=== PATIENT | male | born 1980 | race Caucasian/White ===

== ENCOUNTER 2017-07-04 12:24 | Emergency (ER) | payer BC ==
--- NOTE | 2017-07-04 14:00 | RADIOLOGY REPORT (SQ) ---
EXAM DESCRIPTION: FOOT RIGHT COMPLETE COMPLETED DATE/TIME: 07/04/2017 1:35 pm REASON FOR STUDY: swollen, unable to move toes, dropped trailer onit COMPARISON: None. NUMBER OF VIEWS: Three views. TECHNIQUE: AP, lateral and oblique radiographic images acquired of the right foot. LIMITATIONS: None. FINDINGS: MINERALIZATION: Normal. BONES: Fractures of the proximal phalanx of the 1st, 2nd, 3rd, and 4th toes. JOINTS: No effusions. SOFT TISSUES: No soft tissue swelling. No foreign body. OTHER: No other significant finding. IMPRESSION: FRACTURES OF THE PROXIMAL PHALANX OF THE 1ST TO 4TH TOES. TECHNICAL DOCUMENTATION: JOB ID: [id number] [employer]- All Rights Reserved Reading location - IP/workstation name: [email or web address]
[2017-07-04] MEDS ORDERED: OXYCODONE-ACETAMINOPHEN 5-325 MG TABLET PO ONE (14:24)
--- NOTE | 2017-07-04 14:29 | ER Document Report ---
ED General - General Chief Complaint: Foot Injury Stated Complaint: RIGHT FOOT PAIN, SWELLING Time Seen by Provider: 07/04/17 14:08 Mode of Arrival: Ambulatory Information source: Patient - HPI Notes: Pt is a 37 y.o. otherwise healthy reports trailer fell on R distal foot at 1030 , reports pain and swelling since. No bleeding, numbness, paresthesia. No fever. No other injury. - Related Data Allergies/Adverse Reactions: No Known Allergies Allergy (Unverified 07/04/17 12:33) Past Medical History - General Information source: Patient - Social History Smoking Status: Never Smoker Chew tobacco use (# tins/day): No Frequency of alcohol use: Occasional Drug Abuse: None Lives with: Family Family History: None, Reviewed & Not Pertinent Patient has suicidal ideation: No Patient has homicidal ideation: No Renal/ Medical History: Denies: Hx Peritoneal Dialysis Review of Systems - Review of Systems Notes: REVIEW OF SYSTEMS: CONSTITUTIONAL : Denies fever, chills, or sweats. Denies recent illness. EENT: Denies eye, ear, throat, or mouth pain or symptoms. Denies nasal or sinus congestion or discharge. Denies throat, tongue, or mouth swelling or difficulty swallowing. CARDIOVASCULAR: Denies chest pain. Denies palpitations or racing or irregular heart beat. Denies ankle edema. RESPIRATORY: Denies cough, cold, or chest congestion. Denies shortness of breath, difficulty breathing, or wheezing. GASTROINTESTINAL: Denies abdominal pain or distention. Denies nausea, vomiting , or diarrhea. Denies blood in vomitus, stools, or per rectum. Denies black, tarry stools. Denies constipation. GENITOURINARY: Denies difficulty urinating, painful urination, burning, frequency, blood in urine, or discharge. MUSCULOSKELETAL: Denies back or neck pain or stiffness. SKIN: Denies rash, lesions or sores. HEMATOLOGIC : Denies easy bruising or bleeding. LYMPHATIC: Denies swollen, enlarged glands. NEUROLOGICAL: Denies confusion or altered mental status. Denies passing out or loss of consciousness. Denies dizziness or lightheadedness. Denies headache. Denies weakness or paralysis or loss of use of either side. Denies problems with gait or speech. Denies sensory loss, numbness, or tingling. Denies seizures. PSYCHIATRIC: Denies anxiety or stress. Denies depression, suicidal ideation, or homicidal ideation. ALL OTHER SYSTEMS REVIEWED AND NEGATIVE. Dictation was performed using [employer] voice recognition software Physical Exam - Vital signs Vitals: Temp Pulse Resp BP Pulse Ox 97.8 F 80 16 143/93 H 97 07/04/17 12:40 07/04/17 12:40 07/04/17 12:40 07/04/17 12:40 07/04/17 12:40 - Notes Notes: PHYSICAL EXAMINATION: GENERAL: Well-appearing, well-nourished and in no acute distress. HEAD: Atraumatic, normocephalic. EYES: Pupils equal round, conjunctiva are normal. ENT: Nares patent, oropharynx clear without exudates. NECK: Normal range of motion, supple without lymphadenopathy LUNGS: Breath sounds clear to auscultation bilaterally and equal. No wheezes rales or rhonchi. HEART: Regular rate and rhythm without murmurs Musculoskeletal: Normal range of motion, no pitting or edema. No cyanosis. Bruising noted with some ecchymosis to the base of the first through fourth toes with obvious contusion. Distally, the patient has good sensation and capillary refill. There is no proximal erythema or adenopathy noted. NEUROLOGICAL: Normal sensory, motor exams. Patient has significant pain with movement of the toes in flexion and extension. PSYCH: Normal mood, normal affect. SKIN: Warm, Dry, normal turgor, no rashes or lesions noted. Course - Re-evaluation Re-evalutation: 07/04/17 15:24 Discussion was undertaken with Dr. Pink, who was actively in the operating room, but stated to his office would be available to see the patient on Friday. There is no evidence for neurovascular compromise. The patient was forewarned that he may need a surgical intervention given the degree of displacement of long the proximal phalanxes of these toes. There is no acute compartment syndrome. - Vital Signs Vital signs: Temp Pulse Resp BP Pulse Ox 97.8 F 80 16 143/93 H 97 07/04/17 12:40 07/04/17 12:40 07/04/17 12:40 07/04/17 12:40 07/04/17 12:40 Discharge - Discharge Clinical Impression: Toe fracture, right Qualifiers: Encounter type: initial encounter Toe: unspecified toe Fracture type: closed Fracture alignment: displaced Qualified Code(s): S92.911A - Unspecified fracture of right toe(s), initial encounter for closed fracture Condition: Stable Disposition: HOME, SELF-CARE Instructions: Fractured Toe ([facility]) Additional Instructions: Elevate, ice. Return to E.D. in case of fever, weakness, severe pain. Prescriptions: Ibuprofen 800 mg PO Q8HP PRN #30 tablet PRN Reason: Oxycodone HCl/Acetaminophen [Percocet 5-325 mg Tablet] 1 - 2 tab PO Q4H PRN #25 tablet PRN Reason: Forms: Return to Work Referrals: CM PINK DO [ACTIVE STAFF] - 07/07/17
[2017-07-04 15:55] VITALS: BP 138/87
== END 2017-07-04 15:53 | disposition home or self-care (01) ==
LOC: ER 12:24
DX: S92.911A Unspecified fracture of right toe(s), initial encounter for closed fracture (principal); W20.8XXA Other cause of strike by thrown, projected or falling object, initial encounter
CPT/HCPCS: 99283